=== PATIENT | male | born 1935 | race Caucasian/White ===

== ENCOUNTER 2016-12-20 13:03 | Emergency (ER) | payer OTHER, MEDICAID ==
[~2016-12-20] VITALS: Ht 165.1 cm; Wt 77.1 kg
[2016-12-20 13:03] VITALS: BP 144/83; PULSE 77; RESP 16; TEMP 99.1; O2SAT 99
[~2016-12-20 13:03] MED LIST: ATEN-166 PO; LISI20TA PO
--- NOTE | 2016-12-20 13:03 | NUR ---
PLACED IN BED 2, TRIAGED AT BEDSIDE
--- NOTE | 2016-12-20 13:10 | NUR ---
ER at bedside examining patient.
--- NOTE | 2016-12-20 13:15 | NUR ---
PT BIB EMS FROM [facility] C/O NAUSEA AND VOMITNG X 2 DAYS. PT H/O HTN,HYPERLIPIDEMIA AND CVAX 1 YR AGO W/R SIDE DEFICIT.
[2016-12-20] MEDS ORDERED: PROCHLORPERAZINE EDISYLATE 10 MG/2 ML VIAL IVP ONE (13:30)
[2016-12-20] MEDS ORDERED: DEXAMETHASONE SOD PHOSPHATE 10 MG/ML VIAL IVP ONE (13:30)
[2016-12-20] MEDS ORDERED: ONDANSETRON HCL 4 MG/2 ML VIAL IVP ONE (13:30)
[2016-12-20] MEDS ORDERED: NACL 0.9% 1,000 ML IV ONE (13:30)
[2016-12-20] MEDS ORDERED: KETOROLAC TROMETHAMINE 30 MG VIAL IVP ONE (13:30)
--- NOTE | 2016-12-20 13:50 | NUR ---
PT TOLERATED MEDICATED TOLERATED WELL. PT REPORTS NAUSEA RESOLVING.
[2016-12-20 14:08] LABS: ANION GAP 10 (5-15); CALCIUM 9.1 mg/dL (8.4-11.0); CHLORIDE 99 mmol/L (98-107); CREATININE 0.85 mg/dL (0.55-1.30); GLUCOSE 145 mg/dL (70-99); POTASSIUM 4.1 mmol/L (3.5-5.1); SODIUM SERUM 137 mmol/L (136-145); UREA NITROGEN, BLOOD 14 mg/dL (8-21)
[2016-12-20 14:12] LABS: BASOPHILS % (AUTO) 0.4 % (0.0-2.0); EOSINOPHILS % (AUTO) 0.2 % (0.0-4.0); HEMATOCRIT 41.8 % (36-54); HEMOGLOBIN 14.2 g/dL (14.0-18.0); LYMPHOCYTES # (AUTO) 0.9 K/uL (1.0-5.5); LYMPHOCYTES % (AUTO) 13.2 % (20.5-51.5); MEAN CORPUSCULAR HEMOGLOBIN 29 pg (27-31); MEAN CORPUSCULAR HGB CONC 34 % (32-36); MEAN CORPUSCULAR VOLUME 85 fL (79.0-98.0); MONOCYTES # (AUTO) 0.3 K/uL (0.0-1.0); MONOCYTES % (AUTO) 4.5 % (1.7-9.3); NEUTROPHILS # (AUTO) 5.6 K/uL (1.8-7.7); NEUTROPHILS % (AUTO) 81.7 % (40.0-70.0); PLATELET COUNT (AUTO) 189 K/uL (130-430); RED BLOOD CELL COUNT(AUTO) 4.91 MIL/uL (4.2-6.2); RED CELL DISTRIBUTION WIDTH 14.3 % (9.0-15.0); WHITE BLOOD COUNT (AUTO) 6.8 K/uL (4.8-10.8)
[2016-12-20 14:13] LABS: ALANINE AMINOTRANSFERASE 23 U/L (12-78); ALBUMIN 3.8 g/dL (3.4-4.8); AMYLASE 58 U/L (0-100); ASPARTATE AMINOTRANSFERASE 13 U/L (10-37); LIPASE 67 U/L (73-393); TOTAL BILIRUBIN 0.8 mg/dL (0.0-1.0); TOTAL PROTEIN, SERUM 7.8 g/dL (6.4-8.3)
--- NOTE | 2016-12-20 14:30 | NUR ---
PT REPOSTIONED FOR COMFORT.
--- NOTE | 2016-12-20 15:11 | NUR ---
Dr. Denise speaking with Merari Quinn
[2016-12-20] MEDS ORDERED: DEXAMETHASONE SOD PHOSPHATE 10 MG/ML VIAL ONE (15:43)
--- NOTE | 2016-12-20 15:49 | NUR ---
Spoke with Merari request for facesheet and H&P to
--- NOTE | 2016-12-20 16:00 | NUR ---
Patient given written and verbal discharge instructions and verbalizes understanding. ER MD discussed with patient the results and treatment provided. Given copies of tests performed in ER. Patient in stable condition. ID arm band removed. IV catheter removed intact and dressing applied, no active bleeding. Rx of ZOFRAN given. Patient educated on pain management and to follow up with PMD. Pain Scale 2. Opportunity for questions provided and answered.
--- NOTE | 2016-12-20 16:03 | NUR ---
SPOKE WITH DANNIELLE MCQUEEN AT [facility] AND ADVISED PT TO BE D/C HOME PER FAMILIES REQUEST.
[2016-12-20 16:05] VITALS: BP 140/80; PULSE 78; RESP 16; TEMP 98.4; O2SAT 99
[2016-12-20 17:21] LABS: BILIRUBIN,URINE NEGATIVE (NEGATIVE); BLOOD, URINE NEGATIVE (NEGATIVE); CLARITY/URINE CLEAR (CLEAR); COLOR,URINE YELLOW (YELLOW); GLUCOSE,URINE NEGATIVE (NEGATIVE); KETONES,URINE NEGATIVE (NEGATIVE); LEUKOCYTE ESTERASE ,URINE NEGATIVE (NEGATIVE); NITRITE, URINE NEGATIVE (NEGATIVE); PROTEIN URINE NEGATIVE (NEGATIVE); UROBILINOGEN,URINE 0.2 (0.2-1.0)
--- NOTE | 2016-12-22 14:20 | NUR ---
ADDENDUM:IVF STOP TIME [id number]
== END 2016-12-20 16:05 | disposition home or self-care (01) ==
LOC: SED 13:03
DX: F41.9 Anxiety disorder, unspecified (principal); R11.2 Nausea with vomiting, unspecified; I10 Essential (primary) hypertension; E11.9 Type 2 diabetes mellitus without complications; Z86.73 Personal history of transient ischemic attack (TIA), and cerebral infarction without residual deficits
CPT/HCPCS: 36415; 73030; 74176; 80053; 81003; 82150; 83605; 83690; 85025; 87040; 96361; 96374; 96375; 99285; J0780; J1100; J1885; J2405; J7030

== ENCOUNTER 2019-03-20 18:45 | Emergency (ER) | payer OTHER ==
[~2019-03-20] VITALS: Ht 172.7 cm; Wt 104.3 kg
[2019-03-20] MEDS ORDERED: NACL 0.9% 1,000 ML IV ONE (18:47)
[2019-03-20 18:49] VITALS: BP_SYST 164
[2019-03-20] MEDS ORDERED: NA PHOS,M-B/NA PHOS,DI-BA 118 ML (FLEET ENEMA) RC ONE (19:00)
[2019-03-20] MEDS ORDERED: MORPHINE 4 MG/ML INJ. SYRINGE IVP ONE ×2 (19:15→22:15)
[2019-03-20 19:36] LABS: BASOPHILS % (AUTO) 0.6 % (0.0-2.0); EOSINOPHILS # (AUTO) 0.1 K/uL (0.0-0.4); EOSINOPHILS % (AUTO) 1.6 % (0.0-4.0); HEMOGLOBIN 13.7 g/dL (14.0-18.0); LYMPHOCYTES # (AUTO) 1.9 K/uL (1.0-5.5); LYMPHOCYTES % (AUTO) 26.2 % (20.5-51.5); MEAN CORPUSCULAR HEMOGLOBIN 29 pg (27-31); MEAN CORPUSCULAR HGB CONC 34 % (32-36); MEAN CORPUSCULAR VOLUME 87 fL (79.0-98.0); MONOCYTES # (AUTO) 0.7 K/uL (0.0-1.0); MONOCYTES % (AUTO) 9.4 % (1.7-9.3); NEUTROPHILS # (AUTO) 4.4 K/uL (1.8-7.7); NEUTROPHILS % (AUTO) 62.2 % (40.0-70.0); PLATELET COUNT (AUTO) 236 K/uL (130-430); RED BLOOD CELL COUNT(AUTO) 4.72 MIL/uL (4.2-6.2); RED CELL DISTRIBUTION WIDTH 14.2 % (9.0-15.0); WHITE BLOOD COUNT (AUTO) 7.1 K/uL (4.8-10.8)
[2019-03-20 19:46] LABS: ANION GAP 10 (5-15); CALCIUM 9.5 mg/dL (8.4-11.0); CHLORIDE 98 mmol/L (98-107); CREATININE 0.99 mg/dL (0.55-1.30); GLUCOSE 137 mg/dL (70-99); SODIUM SERUM 135 mmol/L (136-145); UREA NITROGEN, BLOOD 11 mg/dL (8-21)
[2019-03-20 19:49] LABS: PROTHROMBIN TIME 10.4 SECS (9.5-12.5)
[2019-03-20 19:51] LABS: ALANINE AMINOTRANSFERASE 28 U/L (12-78); ALBUMIN 3.5 g/dL (3.4-4.8); AMYLASE 53 U/L (0-100); ASPARTATE AMINOTRANSFERASE 16 U/L (10-37); LIPASE 53 U/L (73-393); TOTAL BILIRUBIN 0.4 mg/dL (0.0-1.0)
[2019-03-20 20:11] LABS: BILIRUBIN,URINE NEGATIVE (NEGATIVE); BLOOD, URINE NEGATIVE (NEGATIVE); CLARITY/URINE CLEAR (CLEAR); COLOR,URINE YELLOW (YELLOW); GLUCOSE,URINE NEGATIVE (NEGATIVE); KETONES,URINE NEGATIVE (NEGATIVE); LEUKOCYTE ESTERASE ,URINE NEGATIVE (NEGATIVE); NITRITE, URINE NEGATIVE (NEGATIVE); PH,URINE 6.5 (5.0-8.0); PROTEIN URINE NEGATIVE (NEGATIVE); UROBILINOGEN,URINE 0.2 (0.2-1.0)
[2019-03-20] MEDS ORDERED: LACTULOSE 20 GM/30 ML UDC PO ONE (21:15)
[2019-03-21 00:37] VITALS: BP_SYST 131
== END 2019-03-21 00:37 | disposition home or self-care (01) ==
LOC: SED 18:45
DX: K59.00 Constipation, unspecified (principal); G89.29 Other chronic pain; M54.5 Low back pain; Z86.73 Personal history of transient ischemic attack (TIA), and cerebral infarction without residual deficits; E11.9 Type 2 diabetes mellitus without complications; I10 Essential (primary) hypertension
CPT/HCPCS: 36415; 71045; 74176; 80053; 81003; 82150; 82272; 82550; 83690; 83605; 84484; 85025; 85610; 85730; 87040; 96374; 96376; 99284; J2270; J7030

== ENCOUNTER 2020-05-13 08:31 | Emergency (ER) | payer OTHER ==
[~2020-05-13] VITALS: Ht 172.7 cm; Wt 90.7 kg
[2020-05-13 08:49] VITALS: BP_SYST 127
--- NOTE | 2020-05-13 09:00 | NUR ---
DR GILL IN TO ASSESS
--- NOTE | 2020-05-13 09:10 | NUR ---
ALERT, CALM, RESP UNLABORED, SKIN WARM AND DRY. COMMUNICATES CLEARYL , NAD. STATES HE MISSED HIS CHAIR AND FELL ON HIS REAR INJURING HIS "TAILBONE" DENIES CP/SOB, DENIES FEVER/CHILLS
[2020-05-13] MEDS ORDERED: KETOROLAC TROMETHAMINE 60 MG/2 ML VIAL IM ONE (09:15)
[2020-05-13] MEDS ORDERED: MORPHINE 4 MG/ML INJ. SYRINGE IM ONE (10:30)
--- NOTE | 2020-05-13 10:46 | NUR ---
MEDICATED FOR PAIN, PT STATED HE IS READY TO GO HOME W/RX
[2020-05-13 11:01] VITALS: BP_SYST 127
--- NOTE | 2020-05-13 11:01 | NUR ---
Patient given written and verbal discharge instructions and verbalizes understanding. ER MD discussed with patient the results and treatment provided. Patient in stable condition. ID arm band removed. Rx of Motrin and [place] given. Patient educated on pain management and to follow up with PMD. Pain Scale 3. Opportunity for questions provided and answered. Medication side effect fact sheet provided. Pt being sent back to [facility], Report called to Oracio SANCHEZ.
== END 2020-05-13 11:01 | disposition home or self-care (01) ==
LOC: SED 08:31
DX: S39.92XA Unspecified injury of lower back, initial encounter (principal); I10 Essential (primary) hypertension; E11.9 Type 2 diabetes mellitus without complications; W18.39XA Other fall on same level, initial encounter; Y93.89 Activity, other specified; Y92.89 Other specified places as the place of occurrence of the external cause; Y99.8 Other external cause status
CPT/HCPCS: 72220; 96372; 99284; J1885; J2270

== ENCOUNTER 2020-05-17 18:13 | Inpatient (IN) | payer OTHER, SELFPAY ==
[~2020-05-17] VITALS: Ht 172.7 cm; Wt 136.1 kg
[2020-05-17 19:05] VITALS: BP_SYST 141
--- NOTE | 2020-05-17 20:05 | NUR ---
Patient to ER bed 6 to gown for evaluation. Side rails up.
--- NOTE | 2020-05-17 20:20 | NUR ---
PT BIB BLS FROM [facility] A&O X2 C/O OF FEVER AND GENERALIZED WEAKNESS X3 DAYS. PT TEMP OF 98.8 ORALLY. PT C/O OF LOWER BACK PAIN 8/10 SINCE LAST WEEK.
--- NOTE | 2020-05-17 20:22 | NUR ---
ER Dr. LIU at bedside examining patient.
--- NOTE | 2020-05-17 20:40 | NUR ---
# 18 gauge angiocath placed to LAC. Use of asceptic technique. Opsite placed over site. Blood return noted. Blood,blood cultures, lactic for lab drawn from site. Flushed with 10 cc of normal saline. No evidence of infiltration noted. Patient tolerated well.
--- NOTE | 2020-05-17 21:06 | NUR ---
report given to vj gomes for continuation of care.
--- NOTE | 2020-05-17 21:10 | NUR ---
Report recieved from ЕЛЕНА Johnson for continuation of care.
[2020-05-17] MEDS ORDERED: CLOP75TA32 PO (21:18)
[2020-05-17] MEDS ORDERED: PRO40 PO (21:18)
[2020-05-17] MEDS ORDERED: FURO20TA4 PO (21:19)
[2020-05-17] MEDS ORDERED: HYDR-3917 PO (21:19)
[2020-05-17] MEDS ORDERED: TRAZ-250 PO (21:19)
[2020-05-17] MEDS ORDERED: LISI-600 PO (21:19)
[2020-05-17] MEDS ORDERED: POTA20TA83 PO (21:19)
[2020-05-17] MEDS ORDERED: METO50TA7 PO (21:19)
[2020-05-17] MEDS ORDERED: NOR10 PO (21:19)
[2020-05-17] MEDS ORDERED: LORA1TAB PO (21:19)
[2020-05-17] MEDS ORDERED: SENN8.6T19 PO (21:19)
[2020-05-17] MEDS ORDERED: METO5TAB86 PO (21:19)
[2020-05-17 21:20] LABS: BASOPHILS % (AUTO) 0.1 % (0.0-2.0); EOSINOPHILS % (AUTO) 0.1 % (0.0-4.0); HEMATOCRIT 36.1 % (36-54); LYMPHOCYTES # (AUTO) 0.7 K/uL (1.0-5.5); LYMPHOCYTES % (AUTO) 26.1 % (20.5-51.5); MEAN CORPUSCULAR HEMOGLOBIN 29 pg (27-31); MEAN CORPUSCULAR HGB CONC 33 % (32-36); MEAN CORPUSCULAR VOLUME 88 fL (79.0-98.0); MONOCYTES # (AUTO) 0.5 K/uL (0.0-1.0); MONOCYTES % (AUTO) 18.8 % (1.7-9.3); NEUTROPHILS # (AUTO) 1.4 K/uL (1.8-7.7); NEUTROPHILS % (AUTO) 54.9 % (40.0-70.0); PLATELET COUNT (AUTO) 134 K/uL (130-430); RED BLOOD CELL COUNT(AUTO) 4.09 MIL/uL (4.2-6.2); RED CELL DISTRIBUTION WIDTH 13.9 % (9.0-15.0)
[2020-05-17] MEDS ORDERED: ONDA4TAB5 PO (21:26)
[2020-05-17] MEDS ORDERED: ACET-2634 PO (21:26)
[2020-05-17] MEDS ORDERED: MOM PO (21:26)
[2020-05-17] MEDS ORDERED: LORA-258 PO (21:26)
[2020-05-17] MEDS ORDERED: [UNRECOGNIZED DRUG - OTHER] PO (21:26)
[2020-05-17 21:31] LABS: PROTHROMBIN TIME 10.1 SECS (9.5-12.5)
[2020-05-17] MEDS ORDERED: LIDO76.5 TP (21:34)
[2020-05-17] MEDS ORDERED: ACET-73 PO (21:36)
[2020-05-17] MEDS ORDERED: POLY238P14 PO (21:36)
[2020-05-17] MEDS ORDERED: LEVO500T89 PO (21:36)
[2020-05-17 21:37] LABS: ANION GAP 6 (5-15); CALCIUM 8.5 mg/dL (8.4-11.0); CHLORIDE 97 mmol/L (98-107); CREATININE 0.94 mg/dL (0.55-1.30); GLUCOSE 134 mg/dL (70-99); POTASSIUM 4.2 mmol/L (3.5-5.1); SODIUM SERUM 129 mmol/L (136-145); UREA NITROGEN, BLOOD 13 mg/dL (8-21)
--- NOTE | 2020-05-17 21:37 | NUR ---
Medication reconciliation completed with information provided by [facility]. Any prior medication reconciliation on file was reviewed and corrected.
[2020-05-17 21:42] LABS: ALANINE AMINOTRANSFERASE 29 U/L (12-78); ALBUMIN 2.9 g/dL (3.4-4.8); ASPARTATE AMINOTRANSFERASE 24 U/L (10-37); LACTATE DEHYDROGENASE 283 U/L (85-227); TOTAL BILIRUBIN 0.5 mg/dL (0.0-1.0)
[2020-05-17 22:07] LABS: WHITE BLOOD COUNT (AUTO) 2.6 K/uL (4.8-10.8)
[2020-05-17 22:13] LABS: C-REACTIVE PROTEIN QUANT 15.9 mg/dL (0-0.5)
[2020-05-17 22:54] LABS: BILIRUBIN,URINE NEGATIVE (NEGATIVE); CLARITY/URINE CLEAR (CLEAR); COLOR,URINE YELLOW (YELLOW); GLUCOSE,URINE NEGATIVE (NEGATIVE); KETONES,URINE 1+ (NEGATIVE); LEUKOCYTE ESTERASE ,URINE NEGATIVE (NEGATIVE); NITRITE, URINE NEGATIVE (NEGATIVE); PH,URINE 6.5 (5.0-8.0); PROTEIN URINE 2+ (NEGATIVE); UROBILINOGEN,URINE 0.2 (0.2-1.0)
[2020-05-17 23:06] LABS: BLOOD, URINE TRACE (NEGATIVE)
[2020-05-17 23:08] LABS: BACTERIA,URINE RARE /HPF (None Seen); WBC,URINE 0-3 /HPF (0-3)
--- NOTE | 2020-05-17 23:14 | NUR ---
criticial result fibrinogen 551. dr hickey notified and vj gomes notified
[2020-05-17] MEDS ORDERED: AZITHROMYCIN 250 MG TABLET PO ONE (23:30)
[2020-05-17] MEDS ORDERED: cefTRIAXone 1 GM IVPB PREMIX 50 ML IV ONE (23:30)
--- NOTE | 2020-05-17 23:55 | NUR ---
In and out salmon catheter used for collection of urine. # 16 FR Salmon catheter with use of sterile technique.Urine sample collected and sent to lab. Pt tolerated procedure well. Patient unable to toilet self.
[2020-05-18] MEDS ORDERED: HEPARIN SODIUM,PORCINE 5000 UNITS/ML VIAL IVP ONE
[2020-05-18] MEDS ORDERED: D5LR 1,000 ML IV ONE
--- NOTE | 2020-05-18 00:03 | NUR ---
Pt resting, no complaints at this time. Symmetric chest rise and fall.
[2020-05-18] MEDS ORDERED: MILK OF MAGNESIA 30 ML UDC PO PRN (00:45)
[2020-05-18] MEDS ORDERED: ACETAMINOPHEN 500 MG TABLET PO PRN (00:45)
[2020-05-18] MEDS ORDERED: NALOXONE HCL 0.4 MG/ML AMP (NARCAN) IVP PRN (00:45)
[2020-05-18] MEDS ORDERED: ONDANSETRON 4 MG ODT TAB PO PRN (00:45)
--- NOTE | 2020-05-18 00:53 | NUR ---
Note peggy in ED - 05/18/20 at 0114 by [email or web address] Fresh Frozen Plasma is being given, confirmed daily Solano RN. Vitals updated in interventions. Stable, AxOx4 no complaints at this time.
[2020-05-18] MEDS: D5LR 1,000 ML IV SCH ×2 (01:28→15:45)
[2020-05-18] MEDS ORDERED: cefTRIAXone 1 GM IVPB PREMIX 50 ML IV ONE (01:45)
[2020-05-18] MEDS ORDERED: LIDOCAINE HCL TP SCH (02:00)
--- NOTE | 2020-05-18 02:06 | NUR ---
Pt requesting pain medication. Scheduled pain medication will be given.
[2020-05-18] MEDS: HYDROcodone/ACETAMIN 5-325 MG TAB (NORCO/ VICODIN) PO PRN ×4 (02:15→19:08)
[2020-05-18] MEDS: metroNIDAZOLE 500 mg/NS 100 ML IV SCH ×4 (02:40→23:23)
--- NOTE | 2020-05-18 04:00 | NUR ---
Pt changed to hospital bed. Pt soiled, gown has been changed. Pt has old wound dressing on sacrum. Skin intact.
--- NOTE | 2020-05-18 04:13 | NUR ---
COVID,MRSA AND INFLUENZA swab sent to lab.
[2020-05-18 06:34] LABS: BASOPHILS % (AUTO) 0.3 % (0.0-2.0); HEMATOCRIT 34.7 % (36-54); HEMOGLOBIN 11.5 g/dL (14.0-18.0); LYMPHOCYTES # (AUTO) 0.9 K/uL (1.0-5.5); LYMPHOCYTES % (AUTO) 34.5 % (20.5-51.5); MEAN CORPUSCULAR HEMOGLOBIN 29 pg (27-31); MEAN CORPUSCULAR HGB CONC 33 % (32-36); MEAN CORPUSCULAR VOLUME 87 fL (79.0-98.0); MONOCYTES # (AUTO) 0.5 K/uL (0.0-1.0); MONOCYTES % (AUTO) 18.3 % (1.7-9.3); NEUTROPHILS # (AUTO) 1.2 K/uL (1.8-7.7); NEUTROPHILS % (AUTO) 46.9 % (40.0-70.0); PLATELET COUNT (AUTO) 117 K/uL (130-430); RED BLOOD CELL COUNT(AUTO) 3.98 MIL/uL (4.2-6.2); WHITE BLOOD COUNT (AUTO) 2.5 K/uL (4.8-10.8)
[2020-05-18 07:21] LABS: ALANINE AMINOTRANSFERASE 24 U/L (12-78); ALBUMIN 2.6 g/dL (3.4-4.8); ANION GAP 6 (5-15); ASPARTATE AMINOTRANSFERASE 22 U/L (10-37); CALCIUM 8.3 mg/dL (8.4-11.0); CHLORIDE 98 mmol/L (98-107); CHOLESTEROL 139 mg/dL (<200); CREATININE 0.82 mg/dL (0.55-1.30); GLUCOSE 172 mg/dL (70-99); HDL CHOLESTEROL 36 mg/dL (>45); LDL CHOLESTEROL 88 mg/dL (<100); PHOSPHORUS 2.9 mg/dL (2.7-4.5); POTASSIUM 4.2 mmol/L (3.5-5.1); SODIUM SERUM 131 mmol/L (136-145); TOTAL BILIRUBIN 0.4 mg/dL (0.0-1.0); TRIGLYCERIDES 93 mg/dL (30-150); UREA NITROGEN, BLOOD 9 mg/dL (8-21)
--- NOTE | 2020-05-18 07:55 | NUR ---
BIBA FROM SNF WITH GENERALIZED WEAKNESS, FEVRE X 3 DAYS A, A, OX2, KNOWS HES IN THE HOSPITAL, KNOWS CHILDRENS NAMES LEFT SIDE SLIGHTLY WEAK FROM PMH STROKE VVS, RESP EVEN AND UNLABORED, O2 @ 4L/MIN NC, IN NO ACUTE DISTRESS #18G LAC PATENT WITH D5W, WILL CHANGE TO D5LR ORDERED @ 100CC/HR SINUS RHYTHM ON MONITOR WILL CONTINUE TO MONITOR
[2020-05-18] MEDS ORDERED: POLYETHYLENE GLYCOL 400 500 GM POWDER PO SCH (09:00)
[2020-05-18] MEDS ORDERED: SENNOSIDES 8.6 MG TABLET PO SCH (09:00)
[2020-05-18] MEDS ORDERED: POLYETHYLENE GLYCOL 3350, 17 GM/ POWD.PACK PO SCH (09:00)
[2020-05-18] MEDS ORDERED: ATENOLOL 25 MG TABLET(TENORMIN) PO SCH (09:00)
[2020-05-18] MEDS: LISINOPRIL 20 MG TABLET PO SCH ×2 (10:15→21:27)
[2020-05-18] MEDS: METOCLOPRAMIDE HCL 10 MG TABLET PO SCH ×2 (10:15→13:19)
[2020-05-18] MEDS: PANTOPRAZOLE SODIUM 40 MG TAB PO SCH (10:15)
[2020-05-18] MEDS: CLOPIDOGREL BISULFATE 75 MG TABLET PO SCH (10:15)
[2020-05-18] MEDS: amLODIPine BESYLATE 10 MG TABLET PO SCH (10:15)
[2020-05-18] MEDS: POTASSIUM CHLORIDE 20 MEQ TAB.PRT.SR PO SCH (10:29)
[2020-05-18] MEDS: FUROSEMIDE 20 MG TABLET PO SCH (10:29)
--- NOTE | 2020-05-18 10:34 | NUR ---
PATIENT C/O LOWER BACK PAIN FROM BED 08/11 NORCO 5MG PO GIVEN, WILL CONTINUE TO MONITOR
--- NOTE | 2020-05-18 12:30 | NUR ---
PATIENT STATES HE'S NOT HUNGRY, DOESN'T WANT LUNCH TOLERATING PO FLUIDS W/O DIFFICULTY PATIENT USED URINAL TO VOID, 400 CC YELLOW URINE SR ON MONITOR VVS, RESP EVEN AND UNLABORED,O2 @ 4L/MIN NC WILL CONT TO MONITOR
[2020-05-18] MEDS: metroNIDAZOLE 250 MG TABLET PO SCH ×3 (13:45→21:26)
[2020-05-18] MEDS ORDERED: METOPROLOL SUCCINATE 50 MG TAB.SR.24H (TOPROL XL) PO ONE (14:15)
[2020-05-18] MEDS ORDERED: LACTOBACILLUS RHAMNOSUS GG 1 CAP CAPSULE PO ONE (14:15)
--- NOTE | 2020-05-18 14:32 | NUR ---
PATIENT SLEEPING, TURNED IN BED IV D5LR @ 100CC/HR PATENT VVS, SR ON MONITOR O2 @ 4L/MIN NC, RESP EVEN AND UNLABORED SPOKE WITH DAUGHTER AND UPDATED, CAITLIN LONG [phone] HAS POA WILL CONTINUE TO MONITOR
--- NOTE | 2020-05-18 14:40 | NUR ---
Call received from [facility]. Received contact information regarding daughter Ramya Michaels (power of personal injury attorney). Phone number is [phone].
[2020-05-18] MEDS: cefTRIAXone 1 GM in D5W 50 ML IV SCH (15:00)
--- NOTE | 2020-05-18 17:05 | NUR ---
C/O 08/11 LOWER BACK PAIN DUE TO "MATTERESS" GIVEN NORCO 5MG PO, WILL CONTINUE TO MONITOR D5LR @ 100CC/HR + ABX IVPB NO DIARRHEA, NO N&V SR ON MONITOR O2 @ 4L/MIN NC
[2020-05-18] MEDS ORDERED: HYDROcodone/ACETAMIN 5-325 MG TAB (NORCO/ VICODIN) ONE (17:24)
[2020-05-18] MEDS ORDERED: metroNIDAZOLE 500 MG TABLET ONE (18:09)
[2020-05-18] MEDS ORDERED: metroNIDAZOLE 500 mg/NS 100 ML IV ONE (18:10)
--- NOTE | 2020-05-18 19:17 | NUR ---
REPORT GIVEN TO ЕЛЕНА FORMAN FOR CERAMIC DESIGN ENGINEER
--- NOTE | 2020-05-18 19:30 | NUR ---
Pt resting. no complaints at this time, states paion has decreased. Symmetric chest rise and fall.
--- NOTE | 2020-05-18 20:33 | NUR ---
Patient repositioned, blankets have been placed to the L side. No complaints at this time.
--- NOTE | 2020-05-18 21:14 | NUR ---
Critical value COVID +
[2020-05-18] MEDS: LORazepam 1 MG TABLET PO SCH (21:26)
[2020-05-18] MEDS: LACTOBACILLUS RHAMNOSUS GG 1 CAP CAPSULE PO SCH (21:26)
[2020-05-18] MEDS: traZODone HCL 50 MG TABLET (DESYREL) PO SCH (21:26)
[2020-05-18] MEDS ORDERED: LORazepam 1 MG TABLET ONE (21:26)
--- NOTE | 2020-05-18 22:05 | NUR ---
Pat woods in [facility] - 05/18/20 at 2237 by [email or web address] Picc line Nurse at bedside. Consent form completed.
--- NOTE | 2020-05-19 00:06 | NUR ---
Pt resting no complaints at this time. Symmetric chest rise and fall.
--- NOTE | 2020-05-19 01:04 | NUR ---
Pt soiled self, bed linens and gown changed. New michael placed on patient. Patient repositioned. Patient clean, skin intact on back, saccrum and feet.
--- NOTE | 2020-05-19 03:07 | NUR ---
Patient resting, symmetric chest rise and fall. no complaints at this time.
[2020-05-19] MEDS: metroNIDAZOLE 500 mg/NS 100 ML IV SCH (06:14)
[2020-05-19] MEDS: D5LR 1,000 ML IV SCH ×2 (06:15→19:39)
[2020-05-19 06:51] LABS: BASOPHILS % (AUTO) 0.2 % (0.0-2.0); EOSINOPHILS % (AUTO) 0.1 % (0.0-4.0); HEMATOCRIT 35.3 % (36-54); LYMPHOCYTES # (AUTO) 0.5 K/uL (1.0-5.5); LYMPHOCYTES % (AUTO) 16.5 % (20.5-51.5); MEAN CORPUSCULAR HEMOGLOBIN 29 pg (27-31); MEAN CORPUSCULAR HGB CONC 34 % (32-36); MEAN CORPUSCULAR VOLUME 86 fL (79.0-98.0); MONOCYTES # (AUTO) 0.5 K/uL (0.0-1.0); MONOCYTES % (AUTO) 16.8 % (1.7-9.3); NEUTROPHILS # (AUTO) 2.1 K/uL (1.8-7.7); NEUTROPHILS % (AUTO) 66.4 % (40.0-70.0); PLATELET COUNT (AUTO) 142 K/uL (130-430); RED CELL DISTRIBUTION WIDTH 13.6 % (9.0-15.0); WHITE BLOOD COUNT (AUTO) 3.2 K/uL (4.8-10.8)
[2020-05-19 07:08] LABS: ALANINE AMINOTRANSFERASE 23 U/L (12-78); ALBUMIN 2.5 g/dL (3.4-4.8); ANION GAP 6 (5-15); ASPARTATE AMINOTRANSFERASE 31 U/L (10-37); CALCIUM 8.2 mg/dL (8.4-11.0); CHLORIDE 99 mmol/L (98-107); CREATININE 0.83 mg/dL (0.55-1.30); FREE T4 (FREE THYROXINE) 1.3 ng/dl (0.8-1.5); GLUCOSE 172 mg/dL (70-99); POTASSIUM 4.3 mmol/L (3.5-5.1); SODIUM SERUM 134 mmol/L (136-145); THYROID STIMULATING HORMONE 0.97 uIu/mL (0.36-3.74); TOTAL BILIRUBIN 0.4 mg/dL (0.0-1.0); UREA NITROGEN, BLOOD 7 mg/dL (8-21)
--- NOTE | 2020-05-19 07:10 | NUR ---
REPORT GIVEN TO ЕЛЕНА WELSH FOR CONTINUATION OF CARE.
--- NOTE | 2020-05-19 07:32 | NUR ---
Patient resting in bed. Respirations even and unlabored. No acute distress noted. Vital signs within normal range. IV fluids infusing as ordered, no signs and symptoms of infiltration.
--- NOTE | 2020-05-19 08:15 | NUR ---
Patient will be admitted to care of Dr. Raman. Admitted to Telemetry unit. Will go to room 124B. Belongings list completed. Complete and up to date summary report printed. SBAR report to be given at bedside with opportunity for questions.
[2020-05-19 08:30] VITALS: BP_SYST 143
--- NOTE | 2020-05-19 08:30 | NUR ---
ADMISSION NOTES, PT RECEIVED FROM E.R, FOR SEPSIS UNDER DR MULLER. PT IS AAOX2 DENIES PAIN, NOTED SKIN TEAR ON LEFT BUTTOCK AND PURPLISH DISCOLORATION. PT SITUATED TO BED, TEACHING DONE ON POC, THE USE OF BED, TV CONTROLS. ENCOURAGED TO CALL FOR ASSIST,
[2020-05-19] MEDS: HYDROcodone/ACETAMIN 5-325 MG TAB (NORCO/ VICODIN) PO PRN ×2 (08:39→18:24)
[2020-05-19] MEDS: PANTOPRAZOLE SODIUM 40 MG TAB PO SCH (09:00)
[2020-05-19] MEDS: FUROSEMIDE 20 MG TABLET PO SCH (09:00)
[2020-05-19] MEDS: LACTOBACILLUS RHAMNOSUS GG 1 CAP CAPSULE PO SCH ×2 (09:00→21:37)
[2020-05-19] MEDS: metroNIDAZOLE 250 MG TABLET PO SCH ×4 (09:00→21:37)
[2020-05-19] MEDS: LISINOPRIL 20 MG TABLET PO SCH ×2 (09:00→21:37)
[2020-05-19] MEDS: POTASSIUM CHLORIDE 20 MEQ TAB.PRT.SR PO SCH (09:00)
[2020-05-19] MEDS: CLOPIDOGREL BISULFATE 75 MG TABLET PO SCH (09:00)
[2020-05-19] MEDS: amLODIPine BESYLATE 10 MG TABLET PO SCH (09:00)
[2020-05-19] MEDS: METOPROLOL SUCCINATE 50 MG TAB.SR.24H (TOPROL XL) PO SCH (09:00)
--- NOTE | 2020-05-19 09:00 | NUR ---
PT ASSISTED WITH BREAKFAST, ATE ON SEVERAL SPOON FULLS OF FOOD. INFORM FOURCHETTE SEWER
--- NOTE | 2020-05-19 12:24 | NUR ---
Dietitian Recommendations * Continue current diet order Please see Nutrition Assessment for details SS, RD
[2020-05-19 13:00] VITALS: BP_SYST 135
[2020-05-19] MEDS: cefTRIAXone 1 GM in D5W 50 ML IV SCH (13:57)
--- NOTE | 2020-05-19 14:28 | NUR ---
P.T. NOTES P.T. EVAL COMPLETED; NON AMBULATORY, AT BASELINE FUNC LEVEL; ENDORSED TO NURSING; O2 SAT ROOM AIR=80s, 2L=91-93%; REFER TO EVAL FOR DETAILS.
[2020-05-19] MEDS ORDERED: ENOXAPARIN SODIUM 40 MG/0.4 ML SYRINGE SUBCUT ONE (17:00)
[2020-05-19 17:11] VITALS: BP_SYST 142
--- NOTE | 2020-05-19 17:30 | NUR ---
PT ASSISTED WITH DINNER ATE ON ABOUT 30% FROM DINNER TRAY.
[2020-05-19] MEDS: CHOLECALCIFEROL (VITAMIN D3) 2,000 UNIT TABLET PO SCH ×2 (18:10→21:37)
[2020-05-19] MEDS: MULTIVITS,CA,MINERALS/IRON/FA 1 TABLET PO SCH (18:10)
[2020-05-19] MEDS: DEXAMETHASONE SOD PHOSPHATE 10 MG/ML VIAL IVP SCH (18:10)
--- NOTE | 2020-05-19 19:54 | NUR ---
CLOSING NOTES, ENDORSED TO NIGHT ЕЛЕНА YOU, PT HAS BEEN STABLE THE WHOLE SHIFT. PT GIVEN PAIN MED 2X TODAY WITH GOOD PAIN RELIEF.
[2020-05-19 20:00] VITALS: BP_SYST 131
--- NOTE | 2020-05-19 20:00 | NUR ---
PT WAS RECEIVED LYING IN BED FULLY AWAKE AND ORIENTED TO HIS NAME AND PLACE. PT IS ON OXYGEN AT 2L/MIN PER NC AND OXYGEN SATURATION IS 92%. NO C/O PAIN OR DISCOMFORT AND NO RESPIRATORY DISTRESS NOTED. IVF OF D5LR IS INFUSING WELL AT 70ML/HR IN LAC WITHOUT ANY SIGNS OF INFILTRATION. FALL, DROPLET ISOLATION AND SAFETY PRECAUTIONS ARE IN PLACE. CALL LIGHT IS WITH PT AND BED ALARM IS ON. BED IS IN THE LOWEST AND LOCKED POSITIONS.
--- NOTE | 2020-05-19 21:30 | NUR ---
SCHEDULED HS MEDICATIONS GIVEN AND NO DIFFICULTY SWALLOWING NOTED. IVF IS INFUSING WELL IN LAC. FALL, DROPLET ISOLATION AND SAFETY PRECAUTIONS ARE IN PLACE.
[2020-05-19] MEDS: LORazepam 1 MG TABLET PO SCH (21:36)
[2020-05-19] MEDS: traZODone HCL 50 MG TABLET (DESYREL) PO SCH (21:37)
[2020-05-19] MEDS: ASCORBIC ACID 500 MG TABLET PO SCH (21:37)
[2020-05-19] MEDS: MAGNESIUM OXIDE 400 MG TABLET PO SCH (21:37)
--- NOTE | 2020-05-19 23:00 | NUR ---
PT IS RESTING QUIETLY IN BED. NO C/O PAIN OR DISCOMFORT. IVF IS INFUSING WELL IN LAC. FALL, DROPLET ISOLATION AND SAFETY PRECAUTIONS ARE IN PLACE.
[2020-05-20 00:50] VITALS: BP_SYST 128
--- NOTE | 2020-05-20 00:50 | NUR ---
NO ACUTE DISTRESS NOTED AT THIS TIME. IVF IS INFUSING WELL IN [facility].
--- NOTE | 2020-05-20 01:12 | NUR ---
CONSULTATION PAGED/CALLED Reason for Consultation: COVID + Person Who was Notified: MORGAN Consulting Physician: Keena SEALS Tool Design Drafter Specialty: ID Ordering Physician: RENZO
--- NOTE | 2020-05-20 03:00 | NUR ---
PT IS SLEEPING WITHOUT ANY RESPIRATORY DISTRESS NOTED. OXYGEN IS ON AT 2L/MIN PER NC. IVF IS INFUSING WELL IN LAC.
--- NOTE | 2020-05-20 05:00 | NUR ---
PT IS RESTING QUIETLY IN BED AND IVF IS INFUSING WELL IN LAC. NO RESPIRATORY DISTRESS NOTED.
[2020-05-20] MEDS: D5LR 1,000 ML IV SCH (05:35)
--- NOTE | 2020-05-20 06:45 | NUR ---
PT IS AWAKE AND RESTING COMFORTABLY IN BED. ALL PT'S NEEDS WERE ATTENDED TO. IVF IS INFUSING WELL IN LAC WITHOUT ANY SIGNS OF INFILTRATION. FALL, DROPLET ISOLATION AND SAFETY PRECAUTIONS ARE IN PLACE. WILL ENDORSE TO DAY SHIFT NURSE.
[2020-05-20 08:30] VITALS: BP_SYST 158
[2020-05-20] MEDS: MAGNESIUM OXIDE 400 MG TABLET PO SCH ×2 (08:53→22:27)
[2020-05-20] MEDS: LACTOBACILLUS RHAMNOSUS GG 1 CAP CAPSULE PO SCH ×2 (08:53→22:27)
[2020-05-20] MEDS: CLOPIDOGREL BISULFATE 75 MG TABLET PO SCH (08:53)
[2020-05-20] MEDS: metroNIDAZOLE 250 MG TABLET PO SCH ×4 (08:53→22:27)
[2020-05-20] MEDS: POTASSIUM CHLORIDE 20 MEQ TAB.PRT.SR PO SCH (08:53)
[2020-05-20] MEDS: CHOLECALCIFEROL (VITAMIN D3) 2,000 UNIT TABLET PO SCH ×2 (08:54→22:28)
[2020-05-20] MEDS: MULTIVITS,CA,MINERALS/IRON/FA 1 TABLET PO SCH (08:54)
[2020-05-20] MEDS: PANTOPRAZOLE SODIUM 40 MG TAB PO SCH (08:54)
[2020-05-20] MEDS: ASCORBIC ACID 500 MG TABLET PO SCH ×2 (08:54→22:28)
[2020-05-20] MEDS: LISINOPRIL 20 MG TABLET PO SCH ×2 (08:54→22:28)
[2020-05-20] MEDS: amLODIPine BESYLATE 10 MG TABLET PO SCH (08:55)
[2020-05-20] MEDS: METOPROLOL SUCCINATE 50 MG TAB.SR.24H (TOPROL XL) PO SCH (08:55)
[2020-05-20] MEDS: FUROSEMIDE 20 MG TABLET PO SCH (08:56)
[2020-05-20] MEDS: ENOXAPARIN SODIUM 40 MG/0.4 ML SYRINGE SUBCUT SCH (08:56)
[2020-05-20] MEDS: HYDROcodone/ACETAMIN 5-325 MG TAB (NORCO/ VICODIN) PO PRN ×2 (09:00→13:19)
[2020-05-20 13:00] VITALS: BP_SYST 135
[2020-05-20] MEDS: cefTRIAXone 1 GM in D5W 50 ML IV SCH (13:19)
--- NOTE | 2020-05-20 13:30 | NUR ---
DR MULLER WAS HERE AND SEEN PT. SPOKE WITH PT'S DAUGHTER CAITLIN.
[2020-05-20] MEDS ORDERED: IPRATROPIUM/ALBUTEROL SULFATE 3 ML AMPUL.NEB (DUONEB) INH ONE (14:00)
[2020-05-20] MEDS ORDERED: IPRATROPIUM/ALBUTEROL SULFATE 3 ML AMPUL.NEB (DUONEB) INH PRN (14:00)
[2020-05-20] MEDS ORDERED: DOXYCYCLINE HYCLATE 100 MG CAPSULE PO ONE (15:00)
[2020-05-20] MEDS: DEXAMETHASONE SOD PHOSPHATE 10 MG/ML VIAL IVP SCH (18:00)
[2020-05-20] MEDS ORDERED: IPRATROPIUM/ALBUTEROL SULFATE 3 ML AMPUL.NEB (DUONEB) INH SCH (19:00)
--- NOTE | 2020-05-20 19:35 | NUR ---
PT ENDORSED TO NIGHT ЕЛЕНА YOU, PT WAS GIVEN PAIN MEDICATIONS WITH GOOD PAIN RELIEF. ENDORSED TO NIGHT TO REQUEST R.T FOR BREATHING TREATMENT IF O2 SAT IS STILL LOW.
--- NOTE | 2020-05-20 19:37 | NUR ---
REPORT RECEIVED FROM DAY SHIFT NURSE. PT IS LYING COMFORTABLY IN BED FULLY AWAKE AND ORIENTED TO HIS NAME AND PLACE. PT IS ON OXYGEN AT 4L/MIN PER NC AND NO RESPIRATORY DISTRESS NOTED. NO C/O PAIN OR DISCOMFORT. IVF OF D5LR IS INFUSING WELL AT 70ML/HR IN LAC WITHOUT ANY SIGNS OF INFILTRATION. FALL, DROPLET ISOLATION AND SAFETY PRECAUTIONS ARE IN PLACE. CALL LIGHT IS WITH PT AND BED ALARM IS ON. BED IS IN THE LOWEST AND LOCKED POSITIONS.
[2020-05-20 20:00] VITALS: BP_SYST 131
[2020-05-20] MEDS: LORazepam 1 MG TABLET PO SCH (22:27)
[2020-05-20] MEDS: traZODone HCL 50 MG TABLET (DESYREL) PO SCH (22:27)
[2020-05-20] MEDS: DOXYCYCLINE HYCLATE 100 MG CAPSULE PO SCH (22:28)
--- NOTE | 2020-05-20 22:30 | NUR ---
PT IS RESTING COMFORTABLY IN BED. NO C/O PAIN OR DISCOMFORT. IVF IS INFUSING WELL IN LAC. FALL, DROPLET ISOLATION AND SAFETY PRECAUTIONS ARE IN PLACE.
[2020-05-21] VITALS: BP_SYST 124
[2020-05-21] MEDS: D5LR 1,000 ML IV SCH (00:46)
--- NOTE | 2020-05-21 01:00 | NUR ---
PT IS SLEEPING COMFORTABLY IN BED. OXYGEN IS ON AT 2L/MIN PER NC. IVF IS INFUSING WELL IN LAC. Addendum: 05/21/20 at 0433 by Katherine Santoyo RN CORRECTION: OXYGEN IS ON AT 4L/MIN PER NC.
--- NOTE | 2020-05-21 03:00 | NUR ---
PT IS SLEEPING WITHOUT ANY RESPIRATORY DISTRESS NOTED. OXYGEN IS ON AT 4L/MIN PER NC. IVF IS INFUSING WELL IN LAC.
--- NOTE | 2020-05-21 07:20 | NUR ---
OPENING NOTE RECEIVED BEDSIDE SBAR FROM NIGHT RN, PATIENT IN BED, RESPIRATIONS EVEN NON LABORED, BED IN LOW AND LOCKED POSITION, CALL LIGHT WITHIN REACH
[2020-05-21 08:00] VITALS: BP_SYST 133
--- NOTE | 2020-05-21 08:00 | NUR ---
NURSE NOTE PATIENT INCONTINENT OF BLADDER, CLEANSED JIMMIE AREA, CHANGED LINENS, PROVIDED ORAL CARE, PATIENT IN BED, RESPIRATIONS EVEN NON LABORED, BED IN LOW AND LOCKED POSITION, CALL LIGHT WITHIN REACH, BED ALARM ON
[2020-05-21] MEDS: HYDROcodone/ACETAMIN 5-325 MG TAB (NORCO/ VICODIN) PO PRN ×2 (08:45→17:45)
[2020-05-21] MEDS: metroNIDAZOLE 250 MG TABLET PO SCH ×4 (09:47→21:00)
[2020-05-21] MEDS: LACTOBACILLUS RHAMNOSUS GG 1 CAP CAPSULE PO SCH ×2 (09:47→21:00)
[2020-05-21] MEDS: POTASSIUM CHLORIDE 20 MEQ TAB.PRT.SR PO SCH (09:47)
[2020-05-21] MEDS: MAGNESIUM OXIDE 400 MG TABLET PO SCH ×2 (09:48→21:00)
[2020-05-21] MEDS: LISINOPRIL 20 MG TABLET PO SCH ×2 (09:48→21:00)
[2020-05-21] MEDS: PANTOPRAZOLE SODIUM 40 MG TAB PO SCH (09:48)
[2020-05-21] MEDS: MULTIVITS,CA,MINERALS/IRON/FA 1 TABLET PO SCH (09:48)
[2020-05-21] MEDS: amLODIPine BESYLATE 10 MG TABLET PO SCH (09:48)
[2020-05-21] MEDS: FUROSEMIDE 20 MG TABLET PO SCH (09:48)
[2020-05-21] MEDS: METOPROLOL SUCCINATE 50 MG TAB.SR.24H (TOPROL XL) PO SCH (09:49)
[2020-05-21] MEDS: DOXYCYCLINE HYCLATE 100 MG CAPSULE PO SCH ×2 (09:49→21:00)
[2020-05-21] MEDS: ASCORBIC ACID 500 MG TABLET PO SCH ×2 (09:49→21:00)
[2020-05-21] MEDS: ENOXAPARIN SODIUM 40 MG/0.4 ML SYRINGE SUBCUT SCH (09:51)
[2020-05-21] MEDS: CHOLECALCIFEROL (VITAMIN D3) 2,000 UNIT TABLET PO SCH ×2 (09:52→21:00)
[2020-05-21] MEDS: CLOPIDOGREL BISULFATE 75 MG TABLET PO SCH (09:52)
--- NOTE | 2020-05-21 10:00 | NUR ---
NURSE NOTE REPOSITIONED PATIENT, BED IN LOW AND LOCKED POSITION CALL LIGHT WITHIN REACH, BED ALARM ON
--- NOTE | 2020-05-21 10:38 | NUR ---
Discharge Planning: [facility] faxed pt referral to [facility] (f [phone])DCP to follow up Addendum: 05/21/20 at 1439 by Veronica Martinez DP DCP followed up withmichael Henson at [facility] (f [phone] p [phone]) DCP transferred call to to give up date.
[2020-05-21 12:00] VITALS: BP_SYST 135
--- NOTE | 2020-05-21 12:00 | NUR ---
NURSE NOTE REPOSITIONED PATIENT, BED IN LOW AND LOCKED POSITION CALL LIGHT WITHIN REACH, BED ALARM ON, OBTAINED VS, PROVIDED PATIENT WITH LUNCH, NO SIGNS OF DISTRESS
[2020-05-21] MEDS: cefTRIAXone 1 GM in D5W 50 ML IV SCH (14:00)
--- NOTE | 2020-05-21 14:00 | NUR ---
NURSE NOTE REPOSITIONED PATIENT, BED IN LOW AND LOCKED POSITION CALL LIGHT WITHIN REACH, BED ALARM ON , ADMINISTERED MEDICATION,
[2020-05-21 16:00] VITALS: BP_SYST 133
--- NOTE | 2020-05-21 16:00 | NUR ---
NURSE NOTE PATIENT INCONTINENT OF BLADDER, CLEANSED JIMMIE AREA, CHANGED LINENS, OBTAINED VS, REPOSITIONED PATIENT, BED IN LOW AND LOCKED POSITION CALL LIGHT WITHIN REACH, BED ALARM ON
--- NOTE | 2020-05-21 16:33 | NUR ---
MD ROUNDS DR MULLER BEDSIDE EXAMINING PATIENT, NEW ORDERS RECEIVED
[2020-05-21] MEDS ORDERED: DEXTROSE 50% JECT 50 ML DISP.SYRIN IVP PRN (16:45)
[2020-05-21] MEDS: DEXAMETHASONE SOD PHOSPHATE 10 MG/ML VIAL IVP SCH (17:00)
--- NOTE | 2020-05-21 17:51 | NUR ---
CONSULT PULMONARY RES FAILURE DR SHOEMAKER, JESÚS HAGAN WILD OYSTER HARVESTER AND PAGED [phone]
--- NOTE | 2020-05-21 18:00 | NUR ---
NURSE NOTE REPOSITIONED PATIENT, BED IN LOW AND LOCKED POSITION CALL LIGHT WITHIN REACH, BED ALARM ON
--- NOTE | 2020-05-21 19:10 | NUR ---
CLOSING NOTE PROVIDED SBAR TO NIGHT RN, PATIENT IN BED RESPIRATIONS EVEN NON LABORED, BED IN LOW AND LOCKED POSITION, CALL LIGHT WITHIN REACH, ENDORSED CARE TO NIGHT RN,
--- NOTE | 2020-05-21 19:20 | NUR ---
OPENING NOTES Received patient resting, HOB elevated. IV site patent, IVF running. Call light within reach, cell phone on patient's chest. Bed alarm on, bed at lowest position. Will continue to monitor.
[2020-05-21 20:00] VITALS: BP_SYST 131
[2020-05-21] MEDS: traZODone HCL 50 MG TABLET (DESYREL) PO SCH (21:00)
[2020-05-21] MEDS: LORazepam 1 MG TABLET PO SCH (21:00)
--- NOTE | 2020-05-21 22:10 | NUR ---
Patient is provided water, no signs of respiratory distress observed. Incontinence care provided. Will continue to monitor.
[2020-05-21] MEDS: INSULIN REGULAR, HUMAN 100 UNITS/ML, 10 ML VIAL (humuLIN R) SUBCUT PRN (22:53)
[2020-05-22] VITALS: BP_SYST 130
--- NOTE | 2020-05-22 01:11 | NUR ---
Incontinence care provided, dressings still intact. will continue to monitor.
--- NOTE | 2020-05-22 04:39 | NUR ---
Patient is resting, no signs of distress observed. IVF running. will continue to monitor.
[2020-05-22] MEDS: D5LR 1,000 ML IV SCH ×2 (06:20→14:00)
[2020-05-22] MEDS: INSULIN REGULAR, HUMAN 100 UNITS/ML, 10 ML VIAL (humuLIN R) SUBCUT PRN ×2 (07:00→13:30)
[2020-05-22] MEDS: ALBUTEROL MDI INHALATION 8 GM INH INH SCH ×3 (07:00→17:13)
--- NOTE | 2020-05-22 07:15 | NUR ---
OPENING NOTES PT AWAKE, ALERT, AND ORIENTED X2. RE-ORIENTED PT TO TIME. NONLABORED BREATHING NOTED ON ROOM AIR, RECEIVING O2 AT 3LPM VIA NASAL CANNULA, TOLERATING WELL. IV LINE INTACT AND PATENT, NO SIGNS OF INFILTRATION NOTED. NO ACUTE DISTRESS NOTED. ALL NEEDS MET. CALL LIGHT IN REACH. FALL, ASPIRATION AND ISOLATION PRECAUTIONS IN PLACE. CONTINUE TO MONITOR.
[2020-05-22 07:52] LABS: BASOPHILS % (AUTO) 0.1 % (0.0-2.0); HEMATOCRIT 35.1 % (36-54); HEMOGLOBIN 12.1 g/dL (14.0-18.0); LYMPHOCYTES # (AUTO) 0.4 K/uL (1.0-5.5); LYMPHOCYTES % (AUTO) 13.7 % (20.5-51.5); MEAN CORPUSCULAR HEMOGLOBIN 29 pg (27-31); MEAN CORPUSCULAR HGB CONC 35 % (32-36); MEAN CORPUSCULAR VOLUME 85 fL (79.0-98.0); MONOCYTES # (AUTO) 0.4 K/uL (0.0-1.0); MONOCYTES % (AUTO) 11.6 % (1.7-9.3); NEUTROPHILS # (AUTO) 2.4 K/uL (1.8-7.7); NEUTROPHILS % (AUTO) 74.6 % (40.0-70.0); PLATELET COUNT (AUTO) 255 K/uL (130-430); RED BLOOD CELL COUNT(AUTO) 4.15 MIL/uL (4.2-6.2); RED CELL DISTRIBUTION WIDTH 13.7 % (9.0-15.0); WHITE BLOOD COUNT (AUTO) 3.2 K/uL (4.8-10.8)
[2020-05-22 07:55] LABS: ANION GAP 8 (5-15); CALCIUM 9.2 mg/dL (8.4-11.0); CHLORIDE 102 mmol/L (98-107); CREATININE 0.74 mg/dL (0.55-1.30); GLUCOSE 235 mg/dL (70-99); POTASSIUM 4.1 mmol/L (3.5-5.1); SODIUM SERUM 137 mmol/L (136-145); UREA NITROGEN, BLOOD 10 mg/dL (8-21)
[2020-05-22 07:59] LABS: PROTHROMBIN TIME 10.5 SECS (9.5-12.5)
[2020-05-22 08:00] VITALS: BP_SYST 138
[2020-05-22 08:04] LABS: ALANINE AMINOTRANSFERASE 25 U/L (12-78); ALBUMIN 2.5 g/dL (3.4-4.8); ASPARTATE AMINOTRANSFERASE 25 U/L (10-37); LACTATE DEHYDROGENASE 233 U/L (85-227); TOTAL BILIRUBIN 0.4 mg/dL (0.0-1.0)
[2020-05-22 08:33] LABS: C-REACTIVE PROTEIN QUANT 2.9 mg/dL (0-0.5)
[2020-05-22 09:37] LABS: ERYTHROCYTE SEDIMENTATION RATE 57 MM/HR (0-15)
[2020-05-22] MEDS: FUROSEMIDE 20 MG TABLET PO SCH (09:45)
[2020-05-22] MEDS: CHOLECALCIFEROL (VITAMIN D3) 2,000 UNIT TABLET PO SCH (09:45)
[2020-05-22] MEDS: CLOPIDOGREL BISULFATE 75 MG TABLET PO SCH (09:45)
[2020-05-22] MEDS: LISINOPRIL 20 MG TABLET PO SCH (09:45)
[2020-05-22] MEDS: metroNIDAZOLE 250 MG TABLET PO SCH ×2 (09:45→14:25)
[2020-05-22] MEDS: PANTOPRAZOLE SODIUM 40 MG TAB PO SCH (09:45)
[2020-05-22] MEDS: MULTIVITS,CA,MINERALS/IRON/FA 1 TABLET PO SCH (09:45)
[2020-05-22] MEDS: METOPROLOL SUCCINATE 50 MG TAB.SR.24H (TOPROL XL) PO SCH (09:45)
[2020-05-22] MEDS: LACTOBACILLUS RHAMNOSUS GG 1 CAP CAPSULE PO SCH (09:45)
[2020-05-22] MEDS: ASCORBIC ACID 500 MG TABLET PO SCH (09:45)
[2020-05-22] MEDS: POTASSIUM CHLORIDE 20 MEQ TAB.PRT.SR PO SCH (09:45)
[2020-05-22] MEDS: amLODIPine BESYLATE 10 MG TABLET PO SCH (09:45)
[2020-05-22] MEDS: MAGNESIUM OXIDE 400 MG TABLET PO SCH (09:45)
[2020-05-22] MEDS: DOXYCYCLINE HYCLATE 100 MG CAPSULE PO SCH (09:45)
[2020-05-22] MEDS: LORazepam 1 MG TABLET PO SCH ×2 (09:45→14:25)
[2020-05-22] MEDS: ENOXAPARIN SODIUM 40 MG/0.4 ML SYRINGE SUBCUT SCH (09:45)
--- NOTE | 2020-05-22 09:45 | NUR ---
ROUTINE MEDS ROUTINE MEDS ADMINISTERED ORDERED PER MD, EDUCATION GIVEN, TOLERATED WELL. CONTINUE TO MONITOR.
--- NOTE | 2020-05-22 10:45 | NUR ---
Received a call from Merari -possible acceptance at [facility]-they will keep us updated.
--- NOTE | 2020-05-22 11:26 | NUR ---
Nutrition F/U Admitting Diagnosis: Sepsis Medical History Comment: PMH: HTN, GERD, depression/anxiety, arthritis Pt also found w/ fever, diarrhea, and possible COVID per physicians note. 05/22: Per MD notes, DM II, Acute GE, Sepsis, Acute COVID-19 COVID-19 Positive 05/17 Subjective Information: RD visit deferred d/t COVID-19. RD s/w pt's primary RN at nursing unit who reported that pt ate 100% of his oatmeal this morning. Per EMR review, pt is non-ambulatory and w/ poor PO intake. Pt is diabetic and wound benefit from CCHO diet and ONS to supplement poor PO intake. Current Diet Order/Nutrition Support: Mechanical Soft x4 days Pertinent Medications: Lasix, SSI, Lovenox, Mag-ox, VIT D, MVI, Zinc, Decadron, Culturelle, Flagyl, Desyrel Pertinent Labs 05/22 Na 137 WNL, K 4.1 WNL, BUN 10 WNL, CRE .74 WNL, BG 235 H, POC BG 211H No new weight Skin Integrity Comment: Tulio scale: 15; no report of pressure injuries, +skin tears to Left and Right buttock. Current % PO Poor (39% average of 9 meals x 1 refusal) NEW Estimated Energy Expenditure (kcals/day) 3725-6760 kcal/day (28-30 kcal/kg IBW for acute state) NEW Estimated Protein Required (g/day) 105-140 g/day (1.5-2 g/kg IBW for acute state) NEW Estimated Fluid Required (l/day) 2-2.1 L/day (1 ml/kcal/day for sepsis) Problem/Etiology/Signs/Symptoms Inadequate nutrient intake related to altered GI function as evidenced by GERD and diarrhea and PO intake meeting <40% of estimated needs. (*modified 05/22) Malnutrition related to morbid obesity as evidenced by BMI >40 and 194% IBW. (*ongoing) Expected Outcomes/Goals - Monitor appetite and PO intakes w/ goal of pt meeting at least 75% of estimated nutritional needs, labs trending WNL, normal GI function, and skin integrity/wt maintenance. Dietitian Recommendations * Recommend: Mechanical soft CCHO diet w/ Glucerna BID. ONS will provide additional 440 kcal and 20gm protein daily. * Encourage pt to increase PO intake. * Consider appetite stimulant. Follow Up High Risk: F/U in 2-3days
--- NOTE | 2020-05-22 11:37 | NUR ---
Dietitian Recommendations * Recommend: Mechanical soft CCHO diet w/ Glucerna BID. ONS will provide additional 440 kcal and 20gm protein daily. * Encourage pt to increase PO intake. * Consider appetite stimulant. Please see Nutrition F/U note for details. ANTHONY LOU
[2020-05-22 12:00] VITALS: BP_SYST 145
--- NOTE | 2020-05-22 13:30 | NUR ---
ACCUCHECK DONE, INSULIN COVERAGE ADMINISTERED PER SLIDING SCALE, TOLERATED WELL. HOB ELEVATED, FED PT LUNCH, TOLERATED WELL. CONTINUE TO MONITOR.
--- NOTE | 2020-05-22 13:32 | NUR ---
DC Planning: Per RICHAR Gomez/Merari IPA: [facility] snf accepted the pt to room 13 A , [facility] to picker box operator at 4pm. Dr. Barahona made aware, he ordered ok to discharge to snf per [facility] ipa. -- devon Bui made aware, she is agreeable with the transfer to [facility] today at 4 pm. DC package delivered to [facility]. ЕЛЕНА Wren made aware.
[2020-05-22] MEDS: HYDROcodone/ACETAMIN 5-325 MG TAB (NORCO/ VICODIN) PO PRN (14:25)
[2020-05-22] MEDS: cefTRIAXone 1 GM in D5W 50 ML IV SCH (14:25)
--- NOTE | 2020-05-22 14:25 | NUR ---
ROUTINE MEDS ROUTINE MEDS ADMINISTERED ORDERED PER MD, EDUCATION GIVEN, TOLERATED WELL. CONTINUE TO MONITOR.
[2020-05-22 15:55] VITALS: BP_SYST 119
[2020-05-22 16:00] VITALS: BP_SYST 119
--- NOTE | 2020-05-22 16:00 | NUR ---
VITAL SIGNS STABLE. CONTINUE TO MONITOR.
--- NOTE | 2020-05-22 16:20 | NUR ---
D/C Patient Patient given medication reconciliation form and D/C instructions. Exit Care provided. Patient in stable condition, ID band removed. IV catheter removed, intact and dressing applied, no active bleeding. All belongings sent with patient. Pt being transferred to SNF, gave report to ЕЛЕНА Hernández.
== END 2020-05-22 16:23 | DRG 871 ==
LOC: SED 18:13 → UNDOADMIN 23:52 → STU 23:52 → SMU 05-21 18:05
PROVIDERS: ADMIT Internal Medicine; ATTEND Internal Medicine
DX: A41.9 Sepsis, unspecified organism (principal); U07.1 COVID-19; J96.01 Acute respiratory failure with hypoxia; J12.89 Other viral pneumonia; E87.1 Hypo-osmolality and hyponatremia; K52.9 Noninfective gastroenteritis and colitis, unspecified; I10 Essential (primary) hypertension; K21.9 Gastro-esophageal reflux disease without esophagitis; F41.9 Anxiety disorder, unspecified; M19.90 Unspecified osteoarthritis, unspecified site; D64.9 Anemia, unspecified; F32.9 Major depressive disorder, single episode, unspecified; G89.4 Chronic pain syndrome; E11.9 Type 2 diabetes mellitus without complications; D72.819 Decreased white blood cell count, unspecified; Z79.899 Other long term (current) drug therapy; Z79.02 Long term (current) use of antithrombotics/antiplatelets; Z86.73 Personal history of transient ischemic attack (TIA), and cerebral infarction without residual deficits
CPT/HCPCS: 36415; 36600; 71045; 80053; 80061; 81000-TC; 82550-TC; 82728; 82803-TC; 82962; 83605; 83615-TC; 83735-TC; 83880; 84100-TC; 84439; 84443-TC; 84484; 85025; 85379; 85384-TC; 85610-TC; 85651-TC; 85730-TC; 86140; 86710; 87040-TC; 87086; 93005; 94664; 94760; 99285; G0378; J0696; J1100; J1644; J1650; J1815; J3490; J7060; J7120; J8597; Q0144; Q0162; U0003-CS